=== PATIENT | female | born 2000 | race African-American/Black ===

== ENCOUNTER 2025-03-08 17:12 | Emergency (ER) | payer OTHER ==
[2025-03-08 17:21] VITALS: BP 115/81; PULSE 71; RESP 20; TEMP 98.8; BMI 24.3
[2025-03-08 18:38] LABS: ABSOLUTE IMMATURE GRANULOCYTES 0.01 x10^3/uL (0.0-0.031); BASOPHILS # 0.04 x10^3/uL (0.01-0.08); EOSINOPHIL % 0.9 % (0.7-5.8); EOSINOPHILS # 0.04 x10^3/uL (0.04-0.36); MCHC 33.6 g/dl (32.2-35.5); MEAN CELL VOLUME 89.0 fl (79.4-94.8); MEAN PLT VOLUME 10.1 fl (9.4-12.3); MONOCYTE # 0.28 x10^3/uL (0.24-0.86); MONOCYTE % 6.3 % (4.7-12.5); RDW 12.8 % (12.1-16.5)
[2025-03-08 18:42] LABS: HCG,QUALITATIVE URINE Negative
[2025-03-08 18:43] LABS: EPI CELLS 19 /uL (0-25.1); HYALINE CASTS 0 /uL (0-3.1); URINE APPEARANCE CLEAR; URINE BACTERIA 884 /uL (0-1359); URINE BILIRUBIN NEGATIVE (NEGATIVE); URINE COLOR YELLOW; URINE GLUCOSE (UA) NEGATIVE (NEGATIVE); URINE KETONE NEGATIVE (NEGATIVE); URINE LEUK ESTERASE TRACE (NEGATIVE); URINE NITRITE NEGATIVE (NEGATIVE); URINE PROTEIN NEGATIVE (NEGATIVE); URINE RBC 48 /uL (0-23.9); URINE UROBILINOGEN 0.2 mg/dL (0.2-1.0); URINE WBC 11 /uL (0-25.8)
[2025-03-08] MEDS ORDERED: MAG HYDROX/AL HYDROX/SIMETH 30 ML UNIT-DOSE CUP ONE (18:45)
[2025-03-08] MEDS ORDERED: FAMOTIDINE 20 MG TABLET ONE (18:45)
[2025-03-08] MEDS: FAMOTIDINE 20 MG TABLET PO ONE (18:48)
[2025-03-08] MEDS: MAG HYDROX/AL HYDROX/SIMETH 30 ML UNIT-DOSE CUP PO ONE (18:48)
[2025-03-08 19:01] LABS: GLUCOSE,RANDOM 73.0 mg/dL (74-106)
[2025-03-08 19:02] LABS: TOT PROT 8.8 g/dl (6.4-8.2)
[2025-03-08 19:03] LABS: CO2 25.0 mmol/L (21-32)
[2025-03-08 19:04] LABS: ALK PHOS 46.0 U/L (40-150)
[2025-03-08 19:07] LABS: CREATININE 1.18 mg/dL (0.55-1.3); SGOT/AST 25.0 U/L (5-34); SGPT/ALT 21.0 U/L (0-55)
[2025-03-08 19:28] LABS: HCV DIAGNOSTIC IN-HOUSE W/RFLX NON-REACTIVE (NONREACTIVE); HIV INTERPRETATION NEGATIVE (NEGATIVE)
== END 2025-03-08 19:34 | disposition home or self-care (01) ==
LOC: JER 17:12
DX: K29.70 Gastritis, unspecified, without bleeding (principal); R10.13 Epigastric pain; R11.0 Nausea
CPT/HCPCS: 36415; 76705-TC; 80053; 81003; 83690; 84703; 85025; 86803; 87086; 87389; 99284-25